=== PATIENT | male | born 1980 | race African-American/Black ===

== ENCOUNTER 2019-07-05 20:05 | Observation (INO) ==
[2019-07-05 21:00] LABS: Basophils # 0.1 10*3/uL (0.0-0.2); Basophils % 0.5 % (0.0-0.8); Eosinophils # 0.3 10*3/uL (0.0-0.87); Eosinophils % 1.9 % (0.00-10.9); Hematocrit 39.8 VOL% (42.0-52.0); Hemoglobin 12.2 GM/DL (14.0-18.0); Immature Granulocytes % 0.3 %; Immature Granulocytes Absolute 0.05 #; Lymphocytes # 4.7 10*3/uL (1.4-4.0); Lymphocytes % 28.4 % (21.2-54.2); Mean Corpuscular HGB Conc 30.7 GM/DL (32-36); Mean Corpuscular Volume 81.2 FL (87-102); Mean Platelet Volume 10.2 FL (9.6-12.0); Monocytes % 4.7 % (1.7-12.7); Neutrophils % 64.2 % (38.7-73.9); Platelet Count 327 T/CUMM (130-400); Red Cell Distribution Width 15.3 % (9.3-17.3); White Blood Count 16.7 T/CUMM (4-12)
[2019-07-05 21:09] LABS: PT Patient Result 10.5 SECS (9.6-12.2); Partial Thromboplastin Time 21.3 SECS (20.8-36.0)
[2019-07-05 21:12] LABS: Alanine Aminotransferase 28 U/L (16-61); Albumin 3.5 G/DL (3.4-5.0); Alkaline Phosphatase 54 U/L (45-117); Aspartate Amino Transferase 11 U/L (0-37); Bilirubin,Total < 0.39 MG/DL (0.2-1.0); Blood Urea Nitrogen 13 MG/DL (7-18); Calcium 8.8 MG/DL (8.5-10.1); Estimated Glom Filtration Rate 142 ML/MIN; Glucose 159 MG/DL (74-106); Osmolality,Calculated 275.8 MOS/KG (273-304); Total Protein 8.7 G/DL (6.4-8.3); Troponin I < 0.015 NG/ML (0.00-0.045)
[2019-07-05] MEDS ORDERED: SODIUM CHLORIDE 0.9% 1,000 ML IV STA (22:01)
[2019-07-05] MEDS ORDERED: DEXTROSE 50% 25 GM/50 ML VIAL IV PRN (22:54)
[2019-07-05] MEDS ORDERED: ACETAMINOPHEN 325 MG TABLET PO PRN (22:54)
[2019-07-05] MEDS ORDERED: GLUCAGON 1 MG VIAL IM PRN (22:54)
[2019-07-05] MEDS ORDERED: POTASSIUM CHLORIDE 20 MEQ TABLET PO PRN (22:54)
[2019-07-05] MEDS ORDERED: MAGNESIUM SULF RIDER 2 GM in PREMIX 1 EACH IV PRN (22:54)
[2019-07-05] MEDS ORDERED: MORPHINE 4 MG/1 ML VIAL IV PRN (22:54)
[2019-07-06 06:05] LABS: Apearance,Urine CLEAR (Clear); Bilirubin,Urine Negative (Negative); Blood, Urine Negative (Negative); Glucose,Urine (UA) Negative (Negative); Ketones,Urine Negative (Negative); Mucus,Urine Occasional /LPF (Occasional); Nitrite,Urine Negative (Negative); Protein,Urine Negative; RBC,Urine 3 /HPF (0-4); Urine Color Yellow (Yellow); Urine Specific Gravity > 1.060 (1.001-1.035); Urine Urobilinogen < 2.0 EU/DL (0.2-1.0); WBC,Urine <1 /HPF (0-6)
[2019-07-06 06:19] LABS: Barbiturates Screen,Urine Negative (Negative); Benzodiazepines Screen,Urine Negative (Negative); Cannabinoid Screen,Urine Positive (Negative); Opiate Screen,Urine Negative (Negative); Phencyclidine Screen,Urine Negative (Negative)
[2019-07-06 07:29] LABS: Troponin I < 0.015 NG/ML (0.00-0.045)
[2019-07-06 07:30] LABS: Risk Ratio 4.02
[2019-07-06] MEDS: INSULIN REGULAR 100 UNIT/ML SUBCUT SCH ×2 (08:13→12:43)
[2019-07-06] MEDS ORDERED: ENOXAPARIN 40 MG/0.4 ML SYRINGE SUBCUT SCH (09:00)
[2019-07-06] MEDS ORDERED: ASPIRIN EC 325 MG TABLET PO SCH (09:00)
[2019-07-06 10:17] LABS: Troponin I < 0.015 NG/ML (0.00-0.045)
[2019-07-06] MEDS ORDERED: MAGNESIUM SULF RIDER 2 GM in PREMIX 1 EACH IV ONE (11:40)
[2019-07-06] MEDS ORDERED: POTASSIUM CHLORIDE 20 MEQ TABLET PO SCH (12:00)
[2019-07-06 12:36] VITALS: BP 153/91
[2019-07-06] MEDS ORDERED: ATENOLOL 50 MG TABLET PO ONE (13:21)
[2019-07-06] MEDS ORDERED: amLODIPine 10 MG TABLET PO ONE (13:21)
[2019-07-06] MEDS ORDERED: hydroCHLOROthiazide 25 MG TABLET PO ONE (13:21)
== END 2019-07-06 14:58 | disposition home or self-care (01) ==
LOC: EDUNIT# → EDBD → N.ED 20:05 → N.EDINP 20:05 → N.2W 07-06 00:30
PROVIDERS: ADMIT Internal Medicine; ATTEND Internal Medicine